=== PATIENT | female | born 1960 | race American Indian/Alaskan Native ===

== ENCOUNTER 2018-10-11 15:19 | Observation (INO) | payer OTHER ==
[2018-10-11] MEDS ORDERED: Nitroglycerin 2% Ointment Foilpak UD TOP STA (16:32)
[2018-10-11] MEDS ORDERED: Aspirin 325 mg EC Tablets PO STA (16:32)
[2018-10-11 16:49] LABS: SQUAMOUS EPITHIAL 1 /hpf (0-5); URINE BACTERIA RARE (<OCC); URINE BILIRUBIN NEGATIVE (NEGATIVE); URINE BLOOD 1+ (NEGATIVE); URINE CLARITY Hazy (Clear); URINE COLOR Yellow (YELLOW); URINE GLUCOSE (UA) NORMAL (Normal); URINE LEUKOCYTE ESTERASE NEG Leu/uL (Negative); URINE PROTEIN NEGATIVE (NEGATIVE); URINE UROBILINOGEN NORMAL mg/dL (0.2-1.0)
--- NOTE | 2018-10-11 16:49 | C.PDOC ---
History Of Present Illness 58 y/o female presents to the ED complaining of 3 weeks of pain to left side of her body including her shoulder and neck. Patient also reports tingling in her left arm occasionally. Today patient developed a pressure-like pain to her left chest. She checked her blood pressure at home and systolic was almost 200. Patient states her PMD told her she had borderline hypertension but never started her on meds. Otherwise she denies any SOB, nausea, vomiting, abdominal pain, numbness, focal weakness, or dizziness. Time Seen by Provider: 10/11/18 15:49 Chief Complaint (Nursing): Chest Pain History Per: Patient History/Exam Limitations: no limitations Onset/Duration Of Symptoms: Hrs Current Symptoms Are (Timing): Still Present Severity: Moderate Quality: Pressure Past Medical History Reviewed: Historical Data, Nursing Documentation, Vital Signs Vital Signs: Last Vital Signs Temp 98.7 F 10/11/18 15:44 Pulse 74 10/11/18 15:44 Resp 18 10/11/18 15:44 BP 171/96 H 10/11/18 15:44 Pulse Ox 99 10/11/18 15:44 - Medical History PMH: No Chronic Diseases Denies: HTN (borderline) Other Surgeries: Tubal ligation Family History: States: Unknown Family Hx - Social History Hx Alcohol Use: No Hx Substance Use: No - Immunization History Hx Tetanus Toxoid Vaccination: No Hx Influenza Vaccination: No Hx Pneumococcal Vaccination: No Review Of Systems Constitutional: Negative for: Fever, Sweats Cardiovascular: Positive for: Chest Pain (left-sided pressure). Negative for: Palpitations Respiratory: Negative for: Shortness of Breath Gastrointestinal: Negative for: Nausea, Vomiting, Abdominal Pain Musculoskeletal: Positive for: Neck Pain (Left), Arm Pain (Left arm/shoulder), Other (Left body pain) Neurological: Positive for: Other (occasional tingling to left arm). Negative for: Weakness, Numbness, Dizziness Physical Exam - Physical Exam Appears: Non-toxic, No Acute Distress Skin: Warm, Dry, No Diaphoretic Head: Atraumatic, Normacephalic Eye(s): bilateral: Normal Inspection, PERRL, EOMI Neck: Normal ROM, No Midline Cervical Tenderness, No Paracervical Tenderness, Supple Chest: Symmetrical, No Deformity, No Tenderness Cardiovascular: Rhythm Regular, No Murmur Respiratory: Normal Breath Sounds, No Rales, No Rhonchi, No Stridor Gastrointestinal/Abdominal: Soft, No Tenderness, No Distention Extremity: Normal ROM (x 4), No Calf Tenderness, No Swelling Pulses: Left Radial: Normal, Right Radial: Normal Neurological/Psych: Oriented x3, Normal Speech, Normal Motor, Normal Sensation ED Course And Treatment - Laboratory Results Result Diagrams: 10/11/18 16:44 10/11/18 16:44 ECG: Interpreted By Me ECG Rhythm: Sinus Rhythm ECG Interpretation: Abnormal Interpretation Of ECG: few T wave inversions Rate From EC O2 Sat by Pulse Oximetry: 99 (RA) Pulse Ox Interpretation: Normal Progress Note: Ordered labs, EKG, and CXR. Patient given 325 mg PO Aspirin, NTG 2% applied topically. Case was d/w who covers for patient's PMD. Patient was accepted to Tele for observation. - Physician Consult Information Physician Contacted: Mahnaz Hayes Outcome Of Conversation: Accepted to tele for observation Disposition - Disposition Disposition: HOSPITALIZED Disposition Time: 18:53 Condition: FAIR - Clinical Impression Clinical Impression: Chest pain, Elevated blood pressure reading - PA / TAP BU[employer]DER / Resident Statement MD/DO has reviewed & agrees with the documentation as recorded. - Scribe Statement The provider has reviewed the documentation as recorded by the Venancioibpilar Scott All medical record entries made by the Scribe were at my direction and personally dictated by me. I have reviewed the chart and agree that the record accurately reflects my personal performance of the history, physical exam, med ica decision making, and the department course for this patient. I have also personally directed, reviewed, and agree with the discharge instructions and disposition. Decision To Admit - Pt Status Changed To: Hospital Disposition Of: Observation - . Bed Request Type: Telemetry Admitting Physician: Mahnaz Hayes Patient Diagnosis: Chest pain, Elevated blood pressure reading
[2018-10-11 16:59] LABS: ALB/GLOB RATIO 1.6 (1.0-2.1); ALBUMIN 4.7 g/dL (3.5-5.0); ALT/SGPT 15 U/L (9-52); AST/SGOT 22 U/L (14-36); BASO # 0.1 K/uL (0.0-0.2); BASO % 1.2 % (0.0-2.0); BLOOD UREA NITROGEN 11 mg/dL (7-17); CALCIUM 9.4 mg/dl (8.6-10.4); EOS # 0.1 K/uL (0.0-0.7); EOS % 1.1 % (0.0-4.0); GFR NON-AFRICAN AMERICAN > 60; HEMOGLOBIN 12.5 g/dL (11.0-16.0); LYMPH # 2.5 K/uL (1.0-4.3); LYMPH % 46.2 % (20.0-40.0); MEAN CELL VOLUME 86.6 fL (81.0-99.0); MEAN CORPUSCULAR HEMOGLOBIN 28.2 pg (27.0-31.0); MEAN CORPUSCULAR HGB CONC 32.6 g/dL (33.0-37.0); MEAN PLATELET VOLUME 7.6 fL (7.2-11.7); MONO # 0.3 K/uL (0.0-0.8); MONO % 6.1 % (0.0-10.0); NEUT # 2.5 K/uL (1.8-7.0); NEUT % 45.4 % (50.0-75.0); NRBC % 0.1 % (0.0-2.0); RBC 4.43 Mil/uL (3.80-5.20); RED CELL DISTRIBUTION WIDTH 14.4 % (11.5-14.5); WHITE BLOOD COUNT 5.5 K/uL (4.8-10.8)
[2018-10-11 17:09] LABS: INR 1.1; PARTIAL THROMBOPLASTIN TIME 33 SECONDS (21-34); PROTHROMBIN TIME 11.6 SECONDS (9.7-12.2)
[2018-10-11] MEDS ORDERED: Nitroglycerin 2% Ointment Foilpak UD TOP ONE (17:09)
[2018-10-11 17:11] LABS: CK-MB 1.17 ng/mL (0.0-3.38)
[2018-10-11 17:21] LABS: D DIMER < 200 ng/mlDDU (0-243)
[2018-10-12] MEDS: Enoxaparin 40 mg Syringe SC SCH (09:56)
--- NOTE | 2018-10-12 12:11 | CP.PCM.CON ---
History of Present Illness - History of Present Illness History of Present Illness: CC chest pain HPI 58 y/o female presents to the ED complaining of 3 weeks of pain to left side of her body including her shoulder and neck. Patient also reports tingling in her left arm occasionally. Today patient developed a pressure-like pain to her left chest. She checked her blood pressure at home and systolic was almost 200. Patient states her PMD told her she had borderline hypertension but never started her on meds. Otherwise she denies any SOB, nausea, vomiting, abdominal pain, numbness, focal weakness, or dizziness. Review of Systems - Constitutional Constitutional: Headache - EENT Eyes: absent: Blurred Vision Ears: absent: Dizziness Nose/Mouth/Throat: absent: Epistaxis - Cardiovascular Cardiovascular: Chest Pain, Dyspnea on Exertion - Gastrointestinal Gastrointestinal: Abdominal Pain, Diarrhea. absent: Constipation - Musculoskeletal Musculoskeletal: Numbness, Radiating Pain into Limb, Tingling. absent: Abnormal Gait - Neurological Neurological: absent: Abnormal Gait Past Patient History - Past Social History Smoking Status: Never Smoked - CARDIAC Hx Hypertension: No (borderline) - PSYCHIATRIC Hx Substance Use: No - SURGICAL HISTORY Hx Surgeries: Yes Hx Tubal Ligation: Yes - ANESTHESIA Hx Anesthesia: Yes Hx Anesthesia Reactions: No Meds Allergies/Adverse Reactions: Allergies Allergy/AdvReac Type Severity Reaction Status Date / Time No Known Allergies Allergy Verified 10/11/18 15:47 - Medications Medications: Current Medications Amlodipine Besylate (Norvasc) 5 mg PO DAILY [facility] Last Admin: 10/12/18 09:55 Dose: 5 mg Aspirin (Aspirin Chewable) 81 mg PO DAILY [facility] Last Admin: 10/12/18 09:55 Dose: 81 mg Enoxaparin Sodium (Lovenox) 40 mg SC DAILY [facility] Last Admin: 10/12/18 09:56 Dose: 40 mg Metoprolol Tartrate (Lopressor) 25 mg PO BID [facility] Last Admin: 10/12/18 09:56 Dose: Not Given Physical Exam - Constitutional Appears: Non-toxic - Head Exam Head Exam: NORMAL INSPECTION - Eye Exam Eye Exam: absent: Scleral icterus - ENT Exam ENT Exam: Mucous Membranes Moist - Neck Exam Neck exam: Positive for: Full Rom - Respiratory Exam Respiratory Exam: Clear to Auscultation Bilateral - Cardiovascular Exam Cardiovascular Exam: REGULAR RHYTHM - Extremities Exam Extremities exam: Negative for: calf tenderness, pedal edema Results - Vital Signs Recent Vital Signs: Last Vital Signs Temp 98.4 F 10/12/18 07:00 Pulse 57 L 10/12/18 09:54 Resp 20 10/12/18 07:00 BP 152/89 H 10/12/18 09:54 Pulse Ox 98 10/12/18 07:00 - Labs Result Diagrams: 10/11/18 16:44 10/11/18 16:44 Labs: Laboratory Results - last 24 hr 10/11/18 10/11/18 10/11/18 16:39 16:44 16:44 WBC 5.5 RBC 4.43 Hgb 12.5 Hct 38.3 MCV 86.6 MCH 28.2 MCHC 32.6 L RDW 14.4 Plt Count 321 MPV 7.6 Neut % (Auto) 45.4 L Lymph % (Auto) 46.2 H [place] % (Auto) 6.1 Eos % (Auto) 1.1 Baso % (Auto) 1.2 Neut # (Auto) 2.5 Lymph # (Auto) 2.5 [place] # (Auto) 0.3 Eos # (Auto) 0.1 Baso # (Auto) 0.1 PT INR APTT D-Dimer, Quantitative Sodium 141 Potassium 4.0 Chloride 105 Carbon Dioxide 29 Anion Gap 12 BUN 11 Creatinine 0.8 Est GFR ( Amer) > 60 Est GFR (Non-Af Amer) > 60 Random Glucose 84 Calcium 9.4 Total Bilirubin 0.3 AST 22 ALT 15 Alkaline Phosphatase 64 Total Creatine Kinase 203 H CK-MB (Mass) 1.17 Troponin I < 0.0120 Total Protein 7.6 Albumin 4.7 Globulin 2.9 Albumin/Globulin Ratio 1.6 Urine Color Yellow Urine Clarity Hazy Urine pH 5.0 Ur Specific [place] 1.018 Urine Protein Negative Urine Glucose (UA) Normal Urine Ketones Negative Urine Blood 1+ H Urine Nitrate Negative Urine Bilirubin Negative Urine Urobilinogen Normal Ur Leukocyte Esterase Neg Urine WBC (Auto) 1 Urine RBC (Auto) 1 Ur Squamous Epith Cells 1 Urine Bacteria Rare 10/11/18 10/12/18 10/12/18 16:44 01:36 11:07 WBC RBC Hgb Hct MCV MCH MCHC RDW Plt Count MPV Neut % (Auto) Lymph % (Auto) [place] % (Auto) Eos % (Auto) Baso % (Auto) Neut # (Auto) Lymph # (Auto) [place] # (Auto) Eos # (Auto) Baso # (Auto) PT 11.6 INR 1.1 APTT 33 D-Dimer, Quantitative < 200 Sodium Potassium Chloride Carbon Dioxide Anion Gap BUN Creatinine Est GFR ( Amer) Est GFR (Non-Af Amer) Random Glucose Calcium Total Bilirubin AST ALT Alkaline Phosphatase Total Creatine Kinase CK-MB (Mass) Troponin I < 0.0120 < 0.0120 Total Protein Albumin Globulin Albumin/Globulin Ratio Urine Color Urine Clarity Urine pH Ur Specific [place] Urine Protein Urine Glucose (UA) Urine Ketones Urine Blood Urine Nitrate Urine Bilirubin Urine Urobilinogen Ur Leukocyte Esterase Urine WBC (Auto) Urine RBC (Auto) Ur Squamous Epith Cells Urine Bacteria Assessment & Plan - Assessment and Plan (Free Text) Assessment: Acute coronary syndrome HTN Chronic smoker - possible COPD Plan: DEVIN Blanco ECHO - Date & Time Date: 10/12/18 Time: 12:15
--- NOTE | 2018-10-12 15:05 | RAD ---
Date of service: 10/11/2018 PROCEDURE: CHEST RADIOGRAPH, 1 VIEW HISTORY: chest pain COMPARISON: None available. FINDINGS: LUNGS: Clear. PLEURA: No pneumothorax or pleural fluid seen. CARDIOVASCULAR: No aortic atherosclerotic calcification present. Normal. OSSEOUS STRUCTURES: No significant abnormalities. VISUALIZED UPPER ABDOMEN: Normal. OTHER FINDINGS: None. IMPRESSION: No active disease.
--- NOTE | 2018-10-12 19:53 | CP.PCM.HP ---
History of Present Illness - History of Present Illness History of Present Illness: 58 y/o female presents to the ED complaining of 3 weeks of pain to left side of her body including her shoulder and neck. Patient also reports tingling in her left arm occasionally. Today patient developed a pressure-like pain to her left chest. She checked her blood pressure at home and systolic was almost 200. Patient states her PMD told her she had borderline hypertension but never started her on meds. Otherwise she denies any SOB, nausea, vomiting, abdominal pain, numbness, focal weakness, or dizziness. Present on Admission - Present on Admission Any Indicators Present on Admission: No Review of Systems - Review of Systems All systems: reviewed and no additional remarkable complaints except (as mentioned in HPI) Past Patient History - Past Social History Smoking Status: Never Smoked - CARDIAC Hx Hypertension: No (borderline) - PSYCHIATRIC Hx Substance Use: No - SURGICAL HISTORY Hx Surgeries: Yes Hx Tubal Ligation: Yes - ANESTHESIA Hx Anesthesia: Yes Hx Anesthesia Reactions: No Meds Home Medications: Home Medication List Medication Instructions Recorded Confirmed Type RX: Aspirin [Aspirin Chewable] 81 mg PO DAILY chew 10/13/18 Rx RX: Metoprolol Tartrate [Lopressor] 25 mg PO BID #60 tab 10/13/18 Rx RX: amLODIPine [Norvasc] 5 mg PO DAILY #30 tab 10/13/18 Rx Allergies/Adverse Reactions: Allergies Allergy/AdvReac Type Severity Reaction Status Date / Time No Known Allergies Allergy Verified 10/11/18 15:47 Physical Exam - Head Exam Head Exam: NORMAL INSPECTION - Eye Exam Eye Exam: Normal appearance - ENT Exam ENT Exam: Mucous Membranes Moist - Respiratory Exam Respiratory Exam: Clear to Auscultation Bilateral - Cardiovascular Exam Cardiovascular Exam: REGULAR RHYTHM, +S1, +S2 - GI/Abdominal Exam GI & Abdominal Exam: Normal Bowel Sounds, Soft - Extremities Exam Extremities exam: Positive for: normal inspection - Neurological Exam Neurological exam: Alert, Oriented x3 - Skin Skin Exam: Normal Color Results - Vital Signs Recent Vital Signs: Last Vital Signs Temp 98.6 F 10/12/18 15:30 Pulse 63 10/12/18 16:00 Resp 18 10/12/18 15:30 BP 148/87 10/12/18 17:32 Pulse Ox 99 10/12/18 16:00 - Labs Result Diagrams: 10/11/18 16:44 10/11/18 16:44 Labs: Laboratory Results - last 24 hr 10/12/18 10/12/18 01:36 11:07 Troponin I < 0.0120 < 0.0120 Assessment & Plan (1) Chest pain Status: Acute (2) Hypertension Status: Acute - Assessment and Plan (Free Text) Plan: Cardiac enzymes Cardiology consult 2D echo Blood pressure control DVT/GI prophylaxis
[2018-10-13] MEDS ORDERED: Caffeine Citrated **INJ** 20 MG/ML IV ONE (08:33)
[2018-10-13] MEDS: Enoxaparin 40 mg Syringe SC SCH (10:31)
--- NOTE | 2018-10-13 14:08 | CP.PCM.PN ---
Subjective - Date & Time of Evaluation Date of Evaluation: 10/13/18 Time of Evaluation: 14:08 - Subjective Subjective: Patient seen and examined No events overnight Objective - Vital Signs/Intake and Output Vital Signs (last 24 hours): Temp Pulse Resp BP Pulse Ox 98.1 F 68 18 160/80 H 98 10/13/18 07:40 10/13/18 07:40 10/13/18 07:40 10/13/18 10:31 10/13/18 08:54 - Medications Medications: Current Medications Amlodipine Besylate (Norvasc) 5 mg PO DAILY [facility] Last Admin: 10/13/18 10:31 Dose: 5 mg Aspirin (Aspirin Chewable) 81 mg PO DAILY [facility] Last Admin: 10/13/18 10:31 Dose: 81 mg Enoxaparin Sodium (Lovenox) 40 mg SC DAILY [facility] Last Admin: 10/13/18 10:31 Dose: 40 mg Metoprolol Tartrate (Lopressor) 25 mg PO BID [facility] Last Admin: 10/13/18 10:31 Dose: 25 mg - Labs Labs: 10/11/18 16:44 10/11/18 16:44 PT 11.6 SECONDS (9.7-12.2) 10/11/18 16:44 INR 1.1 10/11/18 16:44 APTT 33 SECONDS (21-34) 10/11/18 16:44 - Head Exam Head Exam: NORMAL INSPECTION - Eye Exam Eye Exam: Normal appearance - ENT Exam ENT Exam: Mucous Membranes Moist - Respiratory Exam Respiratory Exam: Clear to Ausculation Bilateral - Cardiovascular Exam Cardiovascular Exam: REGULAR RHYTHM, +S1, +S2 - GI/Abdominal Exam GI & Abdominal Exam: Soft, Normal Bowel Sounds - Extremities Exam Extremities Exam: Normal Inspection - Neurological Exam Neurological Exam: Alert, Oriented x3 Assessment and Plan (1) Chest pain Status: Acute (2) Hypertension Status: Acute - Assessment and Plan (Free Text) Plan: Patient is chest pain-free Cardiac enzymes are negative x3 sets Cardiology consult appreciated Blood pressure control DC home if stress test is negative
[2018-10-13 16:08] VITALS: BP 137/85; PULSE 59; RESP 20; TEMP 99; O2SAT 99
--- NOTE | 2018-10-13 16:54 | CARD ---
APPROVED REPORT Date of service: 10/13/2018 Protocol: LEXISCAN Test Type: LEXISCAN STRESS Test Indications: CHEST PAIN Medical History: CP Target HR: 162 bpm Resting ECG: NSR Resting Heart Rate: 55 bpm Resting Blood Pressure: 126/80mmHg submaximum (85%): 138 bpm TEST SUMMARY [id number]:01..1.0./.0. PREINFSNHYPERV.24:[id number]/80.1. INFUSIONDOSE 100:300.00.01.061/.3. RFCABBOYW26:[id number]/80.0. PROCEDURE Pharmacologic stress testing was performed using 0.4mg per 5ml of regadenoson given intravenously over 7-10 seconds. POST EXERCISE Reason for Termination: Protocol Completed Target HR: No Max HR: 61 bpm 63% of Maximum Predicted HR: 162 bpm Exercise duration: 00:30 min:sec, 0 Stage Exercise capacity: 1.0METs Max Blood Pressure: 130/80mmHg Blood Pressure response to exercise: normal resting BP - appropriate response Heart Rate response to exercise: appropriate Chest Pain: No, none Angina index: 0 Arrhythmia: No, none ST Change: No, none Deviation: 0 mm INTERPRETATION Stress EKG Conclusion: NEGATIVE LEXISCAN STRESS TEST NORMAL BP RESPONSE TO LEXISCAN NUCLEAR STUDIES TO BE READ SEPARATELY EXAM: Myocardial Perfusion STRESS/REST Imaging Protocol The imaging protocol used to acquire images was Stress Tc-99m/rest Tc-99m 1 day Stress Spect myocardial perfusion imaging was performed in supine position 42 minutes following the injection of 13.1 mCi of Tc-99 Myoview. Gated Rest Spect was performed 45 minutes after intravenous 32.3 mCi Tc-99 Myoview injection. The images were gated to evaluate regional wall motion and calculate ventricular ejection fraction.Images were reconstructed using backfilter projection method in short horizontal and verticle long axis. Spect slices were generated. RESTING DATA YEY161.05jvUT0.90L/min ESV41.00mlMyocardial Nwpn149.00g Av. Heart Rate48.00bpm EF59.00% STRESS DATA JZL680.09coRK8.30L/min ESV34.00mlMyocardial Qldd451.00g EF73.00% Regional WT score at stress:0.00 Regional WM score at stress:0.00 Summed WT score at stress:0.00 Av. Heart Rate59.00bpmSummed WM score at stress:0.00 LV Perf. Quant 17 Seg. SSS0.00 17 Seg. SRS0.00 17 Seg. SDS0.00 Stress Defect Extent (% LAD)0.00Rest Defect Extent (% LAD)0.00Rev. Defect Extent (% LAD)0.00 Stress Defect Extent (% LCX)0.00Rest Defect Extent (% LCX)0.00Rev. Defect Extent (% LCX)0.00 Stress Defect Extent (% RCA)0.00Rest Defect Extent (% RCA)0.00Rev. Defect Extent (% RCA)0.00 Stress Defect Extent (% DILLAN)0.00Rest Defect Extent (% DILLAN)0.00Rev. Defect Extent (% DILLAN)0.00 IMPRESSION Normal Myocardial Perfusion exercise stress study Left Ventricle LV Size/Shape: The left ventricle is normal size. LV Function:Left ventricle systolic function is normal. The Ejection Fraction is >70%. Metabolism/Perfusion Defects: There is no stress-induced ischemia noted. There are no perfusion/metabolism defects. Conclusion 1. There is no stress-induced ischemia noted. 2. Left ventricle systolic function is normal. 3. The Ejection Fraction is >70%.
--- NOTE | 2018-10-13 17:33 | CP.PCM.PN ---
Subjective - Date & Time of Evaluation Date of Evaluation: 10/13/18 Time of Evaluation: 17:33 - Subjective Subjective: alert and orientedx3, denies sob or chest pains, NAD. Objective - Vital Signs/Intake and Output Vital Signs (last 24 hours): Temp Pulse Resp BP Pulse Ox 99 F 59 L 20 137/85 99 10/13/18 16:07 10/13/18 16:07 10/13/18 16:07 10/13/18 16:07 10/13/18 16:07 - Medications Medications: Current Medications Amlodipine Besylate (Norvasc) 5 mg PO DAILY [facility] Last Admin: 10/13/18 10:31 Dose: 5 mg Aspirin (Aspirin Chewable) 81 mg PO DAILY [facility] Last Admin: 10/13/18 10:31 Dose: 81 mg Enoxaparin Sodium (Lovenox) 40 mg SC DAILY [facility] Last Admin: 10/13/18 10:31 Dose: 40 mg Metoprolol Tartrate (Lopressor) 25 mg PO BID [facility] Last Admin: 10/13/18 17:02 Dose: Not Given - Labs Labs: 10/11/18 16:44 10/11/18 16:44 PT 11.6 SECONDS (9.7-12.2) 10/11/18 16:44 INR 1.1 10/11/18 16:44 APTT 33 SECONDS (21-34) 10/11/18 16:44 Assessment and Plan - Assessment and Plan (Free Text) Assessment: 58 year old female admitted with uncontrolled BP and chest pain, seen and examined. Alert and orientedx3, denies sob or chest pains. Blood pressure is controlled , stress test is negative, discussed with DR Hayes, plan to discharge home on present medications. Advised to do regular exercise, reduce salt intake and follow up PMD in 1 week.
--- NOTE | 2018-10-13 20:16 | CARD ---
APPROVED REPORT Date of service: 10/13/2018 EXAM: Two-dimensional and M-mode echocardiogram with Doppler and color Doppler. Other Information Quality : GoodRhythm : INDICATION Chest Pain RISK FACTORS Hypertension 2D DIMENSIONS IVSd0.9 (0.7-1.1cm)LVDd4.7 (3.9-5.9cm) PWd1.1 (0.7-1.1cm)LA Qydvlh77 (18-58mL) LVDs2.8 (2.5-4.0cm)FS (%) 39.9 % LVEF (%)70.5 (>50%)LVEF (Lind's)63.14 % M-Mode DIMENSIONS Left Atrium (MM)3.87 (2.5-4.0cm)IVSd0.93 (0.7-1.1cm) Aortic Root2.95 (2.2-3.7cm)LVDd5.36 (4.0-5.6cm) Aortic Cusp Exc.2.00 (1.5-2.0cm)PWd0.93 (0.7-1.1cm) FS (%) 43 %LVDs3.06 (2.0-3.8cm) LVEF (%)74 (>50%) Mitral Valve MV E Nkoqcefo35.7cm/sMV A Dvktpgbw86.1cm/sE/A ratio1.6 TDI Lateral E' Peak V9.00cm/sMedial E' Peak V5.87cm/sE/Lateral E'11.0 E/Medial E'16.8 Tricuspid Valve TR Peak Gxolzsku323mr/sTR Peak Gr.07smYaOQYT02muFv LEFT VENTRICLE The left ventricle is normal size. There is normal left ventricular wall thickness. The left ventricular function is normal. The left ventricular ejection fraction is within the normal range. No regional wall motion abnormalities noted. Transmitral Doppler flow pattern is Grade II-pseudonormal filling dynamics. LV filling pressure is elevated No left ventricle thrombus noted on this study. There is no ventricular septal defect visualized. There is no left ventricular aneurysm. There is no mass noted in the left ventricle. RIGHT VENTRICLE The right ventricle is normal size. There is normal right ventricular wall thickness. The right ventricular systolic function is normal. ATRIA The left atrium size is normal. The right atrium size is normal. The interatrial septum is intact with no evidence for an atrial septal defect. AORTIC VALVE The aortic valve is normal in structure and function. No aortic regurgitation is present. There is no aortic valvular stenosis. There is no aortic valvular vegetation. MITRAL VALVE The mitral valve is normal in structure and function. There is no evidence of mitral valve prolapse. There is no mitral valve stenosis. Mitral regurgitation is mild. TRICUSPID VALVE The tricuspid valve is normal in structure and function. There is no tricuspid valve regurgitation noted. There is no tricuspid valve prolapse or vegetation. There is no tricuspid valve stenosis. PULMONIC VALVE The pulmonary valve is normal in structure and function. There is no pulmonic valvular regurgitation. There is no pulmonic valvular stenosis. GREAT VESSELS The aortic root is normal in size. The ascending aorta is normal in size. The pulmonary artery is normal. The IVC is normal in size and collapses >50% with inspiration. PERICARDIAL EFFUSION The pericardium appears normal. There is no pleural effusion. <Conclusion> The left ventricular function is normal. The left ventricular ejection fraction is within the normal range. No regional wall motion abnormalities noted. Transmitral Doppler flow pattern is Grade II-pseudonormal filling dynamics. LV filling pressure is elevated Mitral regurgitation is mild.
--- NOTE | 2018-10-14 12:05 | CARD ---
APPROVED REPORT Date of service: 10/11/2018 EKG Measurement Heart [id number] MS [id number] <Conclusion> Normal sinus rhythm Normal ECG
== END 2018-10-13 18:00 | disposition home or self-care (01) ==
LOC: C.ER 15:19 → C.9E 18:54 → C.6T 19:29
PROVIDERS: ADMIT Internal Medicine Critical Care Medicine; ATTEND Internal Medicine Critical Care Medicine
DX: R07.89 Other chest pain (principal); I10 Essential (primary) hypertension; F17.200 Nicotine dependence, unspecified, uncomplicated
CPT/HCPCS: 36415; 71045; 78452; 80053; 81001; 82550; 82553; 84484; 85025; 85378; 85610; 85730; 93005; 93017; 93306; 99283; A9502; G0378; J0706; J1650; J2785